=== PATIENT | female | born 1970 | race African-American/Black ===

== ENCOUNTER 2023-08-11 01:42 | Inpatient (IN) | payer OTHER ==
[~2023-08-11] VITALS: Ht 165.1 cm; Wt 124.2 kg
[2023-08-11 02:23] LABS: BASOPHILS % (AUTO) 0.5 % (0.0-2.0); LYMPHOCYTES # (AUTO) 2.4 K/uL (1.0-4.8); LYMPHOCYTES % (AUTO) 39.2 % (22.0-44.0); MEAN CORPUSCULAR HEMOGLOBIN 26.6 pg (26.0-34.0); MEAN CORPUSCULAR HGB CONC 32.5 G/dL (31.0-37.0); MEAN CORPUSCULAR VOLUME 82 fL (80-100); MONOCYTES # (AUTO) 0.7 K/uL (0.1-1.0); MONOCYTES % (AUTO) 10.9 % (2.0-9.0); NEUTROPHILS # (AUTO) 2.8 K/uL (1.8-7.7); NEUTROPHILS % (AUTO) 45.4 % (40.0-70.0); PLATELET COUNT (AUTO) 237 K/uL (150-450); RED BLOOD CELL COUNT(AUTO) 4.52 MIL/uL (4.00-5.20); RED CELL DISTRIBUTION WIDTH 15.1 % (11.5-14.5); WHITE BLOOD COUNT (AUTO) 6.2 K/uL (4.5-11.0)
[2023-08-11 02:33] LABS: CALCIUM, TOTAL 9.3 mg/dL (8.8-10.5); CREATININE 1.44 mg/dL (0.60-1.30); POTASSIUM 3.8 mmol/L (3.5-5.1)
[2023-08-11 02:39] LABS: ALBUMIN 3.6 g/dL (3.4-5.0); BILIRUBIN,TOTAL 0.2 mg/dL (0.1-1.0); PROTHROMBIN TIME 10.2 SEC (9.4-11.6); TOTAL PROTEIN, SERUM 8.8 g/dL (6.4-8.2)
[2023-08-11 02:42] LABS: TROPONIN I-HIGH SENSITIVITY 49 ng/L (<51)
[2023-08-11] MEDS: ALTEPLASE PER STROKE PROTOCOL CLINICAL ONE (02:56)
[2023-08-11] MEDS: ALTEPLASE 9 MG in WATER FOR INJECTION,STERILE 9 ML IV ONE (03:10)
[2023-08-11] MEDS: ALTEPLASE 81 MG in WATER FOR INJECTION,STERILE 81 ML IV ONE (03:11)
[2023-08-11] MEDS: LABETALOL HCL 5 MG/ML 20 ML VIAL IVP PRN ×2 (03:23→13:46)
[2023-08-11 03:31] LABS: APPEARANCE,URINE CLEAR (CLEAR); BILIRUBIN,URINE NEGATIVE (NEGATIVE); COLOR,URINE COLORLESS (YELLOW); GLUCOSE, URINE (UA) NEGATIVE (NEGATIVE); KETONES,URINE NEGATIVE (NEGATIVE); LEUKOCYTE ESTERASE ,URINE NEGATIVE (NEGATIVE); NITRATE,URINE NEGATIVE (NEGATIVE); OCCULT BLOOD,URINE NEGATIVE (NEGATIVE); PH,URINE 6.5 (5.0-8.0); PH,URINE DRUG SCREEN 6.5 (5.0-8.0); PROTEIN,URINE NEGATIVE (NEGATIVE); SPECIFIC GRAVITIY, URINE 1.014 (1.003-1.030); UROBILINOGEN,URINE <=1.0 mg/dL (<=1.0)
[2023-08-11 03:34] LABS: BACTERIA,URINE None Seen /HPF (None Seen); RBC,URINE None Seen /HPF (0-2); SQUAMOUS EPITHELIAL CELL,UR Few /LPF (None Seen); WBC,URINE None Seen /HPF (0-5)
[2023-08-11 03:37] LABS: ALCOHOL, URINE DRUG SCREEN NEGATIVE (NEGATIVE); AMPHET/METH SCREEN,URINE NEGATIVE (NEGATIVE); BARBITURATE SCREEN, URINE NEGATIVE (NEGATIVE); BENZODIAZEPINES SCREEN,URINE NEGATIVE (NEGATIVE); CANNABINOID SCREEN,URINE NEGATIVE (NEGATIVE); COCAINE SCREEN,URINE NEGATIVE (NEGATIVE); METHADONE SCREEN, URINE NEGATIVE (NEGATIVE); OPIATE SCREEN,URINE NEGATIVE (NEGATIVE); PHENCYCLIDINE SCREEN,URINE NEGATIVE (NEGATIVE)
[2023-08-11] MEDS: SODIUM CHLORIDE 0.9% 50 ML IV ONE (03:58)
[2023-08-11] MEDS: MethylPREDNISolone SOD SUCC 125 MG/2 ML VIAL IVP ONE (04:11)
[2023-08-11] MEDS: DiphenhydrAMINE HCL 50 MG/ML VIAL IVP ONE (04:12)
[2023-08-11] MEDS: LORazepam 2 MG/ML VIAL IVP ONE (04:30)
[2023-08-11] MEDS: ONDANSETRON HCL 4 MG/2 ML VIAL IVP ONE (04:32)
[2023-08-11] MEDS ORDERED: FURO40TA5 PO (05:24)
[2023-08-11] MEDS ORDERED: 0.9% SODIUM CHLORIDE 10 ML SYRINGE IVP PRN (05:45)
[2023-08-11] MEDS ORDERED: ONDANSETRON HCL 4 MG/2 ML VIAL IVP PRN ×2 (05:45→15:00)
[2023-08-11 08:13] LABS: COVID AG,FIA SOURCE NASAL SWAB
[2023-08-11 08:39] LABS: SARS-COV2 (COVID) ANTIGEN,FIA Negative (Negative)
[2023-08-11] MEDS: PETROLATUM,WHITE 5 GM PACKET JELLY TP ONE (11:35)
[2023-08-11] MEDS ORDERED: SACU1TAB7 PO (12:26)
[2023-08-11] MEDS ORDERED: CARV3 PO (12:26)
[2023-08-11] MEDS ORDERED: BISACODYL 10 MG RECTAL RECTAL SUPPOSITORY PR PRN (15:00)
[2023-08-11] MEDS ORDERED: ALBUTEROL SULFATE 2.5 MG/0.5 ML NEB SOLUTION NEB PRN (15:00)
[2023-08-11] MEDS ORDERED: ZOLPIDEM TARTRATE 5 MG TABLET PO PRN (15:00)
[2023-08-11] MEDS ORDERED: IPRATROPIUM BROMIDE 0.5 MG/2.5 ML NEB SOLUTION NEB PRN (15:00)
[2023-08-11] MEDS ORDERED: MAGNESIUM HYDROXIDE SUSPENSION 30 ML UDCUP PO PRN (15:00)
[2023-08-11 19:24] VITALS: O2SAT 94
[2023-08-11] MEDS: DOCUSATE SODIUM 100 MG CAPSULE PO SCH (20:24)
[2023-08-12 09:19] LABS: CHOL/HDL RATIO 2.4 (3.9-5.7)
[2023-08-12] MEDS: PANTOPRAZOLE SODIUM 40 MG/VIAL IVP SCH (10:09)
[2023-08-12] MEDS: LORazepam 1 MG TABLET PO ONE (10:48)
[2023-08-12 15:32] VITALS: BP 159/100; PULSE 90; RESP 19; TEMP 98.5
[2023-08-12 19:19] VITALS: BP 158/93; PULSE 94; RESP 20; TEMP 97.2
[2023-08-12] MEDS: SACUBITRIL/VALSARTAN 49-51 MG TABLET PO SCH (20:36)
[2023-08-12] MEDS: ATORVASTATIN CALCIUM 10 MG TABLET PO SCH (20:36)
[2023-08-12] MEDS: ASPIRIN 81 MG CHEWABLE TABLET PO ONE (20:37)
[2023-08-12] MEDS: FUROSEMIDE 40 MG/4 ML VIAL IVP ONE (20:38)
[2023-08-12 23:14] VITALS: BP 148/88; PULSE 81; RESP 19; TEMP 97.7
[2023-08-13] MEDS: HEPARIN SODIUM,PORCINE 5,000 UNITS/ML VIAL SQ SCH
[2023-08-13 03:19] VITALS: BP 130/73; PULSE 72; RESP 18; TEMP 97.5
[2023-08-13] MEDS: FUROSEMIDE 40 MG TABLET PO SCH (08:15)
[2023-08-13] MEDS: ASPIRIN 81 MG CHEWABLE TABLET PO SCH (08:15)
[2023-08-13] MEDS: CARVEDILOL 3.125 MG TABLET PO SCH (08:33)
[2023-08-13 09:02] VITALS: BP 148/79; PULSE 73
[2023-08-13] MEDS: CLOPIDOGREL BISULFATE 75 MG TABLET PO SCH (14:46)
[2023-08-13 15:09] VITALS: BP 125/88; PULSE 85; RESP 18; TEMP 98
[2023-08-13] MEDS ORDERED: CLOP75TA60 PO (16:09)
[2023-08-13] MEDS ORDERED: ASPI-1450 PO (16:09)
[2023-08-13] MEDS ORDERED: ATOR10TA69 PO (16:09)
== END 2023-08-13 17:45 | disposition home or self-care (01) | DRG 62 ==
LOC: EMS 01:45 → ICUN 05:35 → ICU 08-12 05:16 → AHU 08-12 09:13 → 5N 08-12 10:22
PROVIDERS: ADMIT Internal Medicine; ATTEND Internal Medicine
DX: I63.9 Cerebral infarction, unspecified (principal); I50.22 Chronic systolic (congestive) heart failure; I11.0 Hypertensive heart disease with heart failure; Z20.822 Contact with and (suspected) exposure to COVID-19; R29.810 Facial weakness; G83.24 Monoplegia of upper limb affecting left nondominant side; R47.81 Slurred speech; M24.542 Contracture, left hand; Z88.6 Allergy status to analgesic agent; Z90.710 Acquired absence of both cervix and uterus
CPT/HCPCS: 70450; 70551; 71045; 74177; 80053; 80061; 80307; 81001; 82948; 83880; 84484; 85025; 85610; 85730; 86850; 86900; 86901; 92610; 93005; 93306; 97112; 97162; 97165; 97535; 99285; C9113; J1200; J1644; J1940; J2060; J2919; J2997; J3490; J7050; Q9967; 36415-L1; 36415-TC